=== PATIENT | female | born 1990 | race Caucasian/White ===

== ENCOUNTER 2016-10-18 13:22 | Emergency (ER) | payer MEDICAID ==
[~2016-10-18] VITALS: Ht 165.1 cm; Wt 104.0 kg
[2016-10-18 13:39] VITALS: BP 159/94
[2016-10-18] MEDS ORDERED: KETOROLAC 60MG/2ML VIAL IM ONE (14:30)
== END 2016-10-18 18:40 | disposition home or self-care (01) ==
LOC: ER 18:28
DX: M54.5 Low back pain (principal); G89.29 Other chronic pain; E66.9 Obesity, unspecified; K80.20 Calculus of gallbladder without cholecystitis without obstruction
CPT/HCPCS: 81025; 96372; 99283; J1885; Z7610

== ENCOUNTER 2017-01-11 15:16 | Emergency (ER) | payer MEDICAID ==
[~2017-01-11] VITALS: Ht 167.6 cm; Wt 106.0 kg
[2017-01-11] MEDS ORDERED: SODIUM CHLORIDE 0.9% 1,000 ML IV ONE (17:30)
[2017-01-11 17:59] LABS: CLARITY URINE CLOUDY (CLEAR); COLOR URINE YELLOW (YELLOW); GLUCOSE URINE NEGATIVE (NEGATIVE); KETONES URINE NEGATIVE (NEGATIVE); LEUKOCYTE ESTERASE URINE TRACE (NEGATIVE); NITRITE URINE NEGATIVE (NEGATIVE); OCCULT BLOOD URINE 3+ (NEGATIVE); PROTEIN URINE TRACE (NEGATIVE); SPECIFIC GRAVITY URINE 1.024 (1.005-1.030)
[2017-01-11 18:01] LABS: BASOPHILS % 1.2 % (0.0-2.0); EOSINOPHILS % 1.8 % (0.0-5.0); HEMATOCRIT. 38.2 % (36.0-48.0); HEMOGLOBIN. 12.6 g/dL (12.0-16.0); LYMPHOCYTES % 30.8 % (20.0-50.0); MEAN CORPUSCULAR HEMOGLOBIN 24.2 pg (28.0-32.0); MEAN CORPUSCULAR VOLUME 73.7 fL (81.0-99.0); MEAN PLATELET VOLUME 7.7 fl (7.4-10.4); NEUTROPHILS % 60.2 % (40.0-76.0); PLATELET 387 x1000/uL (130-400); RED BLOOD CELL COUNT 5.19 mill/uL (4.2-5.4); RED CELL DISTRIBUTION WIDTH 15.9 % (11.6-14.6)
[2017-01-11 18:03] LABS: CHLORIDE 101 mEq/L (98-107)
[2017-01-11 18:07] LABS: HCG SCREEN NEGATIVE
[2017-01-11 18:09] LABS: CARBON DIOXIDE 30 mEq/L (21-32)
[2017-01-11 18:15] LABS: *AMPHETAMINES SCREEN URINE NEGATIVE (NEGATIVE); *BARBITURATES SCREEN URINE NEGATIVE (NEGATIVE); *BENZODIAZEPINES SCREEN URINE NEGATIVE (NEGATIVE); *COCAINE SCREEN URINE NEGATIVE (NEGATIVE); CANNABINOID URINE SCREEN NEGATIVE (NEGATIVE); METHADONE URINE SCREEN NEGATIVE (NEGATIVE); OPIATES URINE SCREEN NEGATIVE (NEGATIVE); PHENCYCLIDINE URINE SCREEN NEGATIVE (NEGATIVE)
[2017-01-11] MEDS ORDERED: AZITHROMYCIN 500 MG in DEXT 5% WATER 250 ML IV ONE (19:00)
[2017-01-11] MEDS ORDERED: CEFTRIAXONE 1 G PREMIX 50 ML IV ONE (19:00)
[2017-01-11] MEDS ORDERED: KETOROLAC 30MG/ML VIAL IV STA (21:03)
[2017-01-11 21:43] VITALS: BP 138/84
== END 2017-01-11 21:44 | disposition home or self-care (01) ==
LOC: ER 18:00
DX: N92.0 Excessive and frequent menstruation with regular cycle (principal); N39.0 Urinary tract infection, site not specified; R31.0 Gross hematuria; R03.0 Elevated blood-pressure reading, without diagnosis of hypertension; Z90.721 Acquired absence of ovaries, unilateral; Z98.890 Other specified postprocedural states
CPT/HCPCS: 36415; 76830; 76856; 80048; 80305; 81001; 84703; 85025; 86850; 86900; 86901; 87086; 96361; 96365; 96366; 96367; 96375; 99285; J0456; J0696; J1885; J7030; Z7610; J7060

== ENCOUNTER 2024-03-12 21:37 | Emergency (ER) | payer SELFPAY ==
[~2024-03-12] VITALS: Ht 165.1 cm; Wt 84.0 kg
[2024-03-12 21:46] VITALS: BP 145/99; RESP 20; TEMP 98.8; O2SAT 100
[2024-03-12 21:53] VITALS: PULSE 81; O2SAT 98
[2024-03-13 00:40] LABS: CLARITY URINE CLEAR (CLEAR); COLOR URINE YELLOW (YELLOW); GLUCOSE URINE NEGATIVE (NEGATIVE); KETONES URINE NEGATIVE (NEGATIVE); LEUKOCYTE ESTERASE URINE NEGATIVE (NEGATIVE); NITRITE URINE NEGATIVE (NEGATIVE); OCCULT BLOOD URINE NEGATIVE (NEGATIVE); PROTEIN URINE NEGATIVE (NEGATIVE); SPECIFIC GRAVITY URINE 1.021 (1.005-1.030); UROBILINOGEN URINE 0.2 E.U./dL (0.2-1.0)
[2024-03-13] MEDS ORDERED: POLY250017 MT (00:47)
[2024-03-13] MEDS ORDERED: DOCU-150 MT (00:47)
== END 2024-03-13 03:10 | disposition home or self-care (01) ==
LOC: ER 21:37
DX: K59.00 Constipation, unspecified (principal)
CPT/HCPCS: 81003; 81025; 99283

== ENCOUNTER 2024-10-16 12:32 | Emergency (ER) | payer SELFPAY ==
[~2024-10-16] VITALS: Ht 167.6 cm; Wt 85.0 kg
[~2024-10-16 12:32] MED LIST: DOCU-422 MT; POLY250017 MT
[2024-10-16 12:38] VITALS: O2SAT 99
[2024-10-16 12:47] VITALS: BP 153/89; PULSE 68; RESP 16; TEMP 36.9; O2SAT 100
[2024-10-16] MEDS: ACETAMINOPHEN 325MG TABLET PO STA (13:40)
[2024-10-16] MEDS: ONDANSETRON 4MG ODT PO STA (13:40)
[2024-10-16 13:42] LABS: CLARITY URINE CLOUDY (CLEAR); COLOR URINE YELLOW (YELLOW); GLUCOSE URINE NEGATIVE (NEGATIVE); KETONES URINE 2+ (NEGATIVE); LEUKOCYTE ESTERASE URINE NEGATIVE (NEGATIVE); NITRITE URINE NEGATIVE (NEGATIVE); OCCULT BLOOD URINE 1+ (NEGATIVE); PROTEIN URINE TRACE (NEGATIVE); SPECIFIC GRAVITY URINE 1.026 (1.005-1.030)
[2024-10-16 14:02] LABS: BACTERIA URINE 1+; RBC URINE 0-2 /hpf (0-2); SQUAMOUS EPITHELIAL CELL URINE 1+ /lpf (RARE/1+); WBC URINE 0-2 /hpf (0-2); YEAST URINE NONE SEEN
[2024-10-16 14:28] LABS: BASOPHILS % 0.6 % (0.0-2.0); DIFFERENTIAL COMMENT 0; EOSINOPHILS % 0.3 % (0.0-5.0); HEMATOCRIT. 38.8 % (36.0-48.0); HEMOGLOBIN. 12.6 g/dL (12.0-16.0); LYMPHOCYTES % 20.6 % (20.0-50.0); MEAN CORPUSCULAR HEMOGLOBIN 25.5 pg (28.0-32.0); MEAN CORPUSCULAR HGB CONC 32.5 g/dL (31.0-37.0); MEAN CORPUSCULAR VOLUME 78.6 fL (81.0-99.0); MEAN PLATELET VOLUME 8.1 fl (7.4-10.4); MONOCYTES % 5.2 % (2.0-8.0); NEUTROPHILS % 73.3 % (40.0-76.0); PLATELET 292 x1000/uL (130-400); RED BLOOD CELL COUNT 4.94 mill/uL (4.2-5.4); RED CELL DISTRIBUTION WIDTH 16.2 % (11.6-14.6); WHITE BLOOD COUNT 12.4 x1000/uL (4.5-11.0)
[2024-10-16 14:31] LABS: HCG SCREEN POSITIVE
[2024-10-16 15:00] LABS: CARBON DIOXIDE 25 mEq/L (21-32); CHLORIDE 104 mEq/L (98-107); POTASSIUM 4.3 mEq/L (3.5-5.1); SODIUM 136 mEq/L (136-145)
[2024-10-16 15:01] LABS: CALCIUM 9.3 mg/dL (8.7-10.4)
[2024-10-16 15:05] LABS: CREATININE 0.6 mg/dL (0.6-1.0)
[2024-10-16 15:06] LABS: GLUCOSE 91 mg/dL (70-105); UREA NITROGEN BLOOD 7 mg/dL (9-23)
[2024-10-16 15:07] LABS: ALANINE AMINOTRANSFERASE 24 IU/L (10-49); ALBUMIN 4.4 g/dL (3.2-4.8); ASPARTATE AMINOTRANSFERASE 18 IU/L (<34)
[2024-10-16 15:08] LABS: BILIRUBIN DIRECT 0.1 mg/dL (<=3.0); BILIRUBIN TOTAL 0.5 mg/dL (0.1-1.0); PROTEIN TOTAL 7.7 g/dL (6.0-8.3)
[2024-10-16] MEDS ORDERED: CEPH500C2 MT (16:59)
[2024-10-16] MEDS ORDERED: PREN-135 MT (16:59)
== END 2024-10-16 17:07 | disposition home or self-care (01) ==
LOC: ER 12:32
DX: O23.41 Unspecified infection of urinary tract in pregnancy, first trimester (principal); Z3A.01 Less than 8 weeks gestation of pregnancy; Z90.721 Acquired absence of ovaries, unilateral
CPT/HCPCS: 99284; 76801; 80076; 80048; 81003; 81025; 84703; 84702; 83690; 85025; 36415; 76817; Q0162

== ENCOUNTER 2024-10-26 18:47 | Emergency (ER) | payer SELFPAY ==
[~2024-10-26] VITALS: Ht 165.1 cm; Wt 82.0 kg
[~2024-10-26 18:47] MED LIST changes: +CEPH500C2 MT; +PREN-135 MT
[2024-10-26 20:08] VITALS: TEMP 37; O2SAT 99
[2024-10-26 20:11] LABS: BASOPHILS % 0.6 % (0.0-2.0); DIFFERENTIAL COMMENT 0; EOSINOPHILS % 0.5 % (0.0-5.0); HEMATOCRIT. 41.3 % (36.0-48.0); HEMOGLOBIN. 13.4 g/dL (12.0-16.0); LYMPHOCYTES % 17.9 % (20.0-50.0); MEAN CORPUSCULAR HEMOGLOBIN 25.4 pg (28.0-32.0); MEAN CORPUSCULAR HGB CONC 32.5 g/dL (31.0-37.0); MEAN CORPUSCULAR VOLUME 78.2 fL (81.0-99.0); MONOCYTES % 6.8 % (2.0-8.0); NEUTROPHILS % 74.2 % (40.0-76.0); PLATELET 319 x1000/uL (130-400); RED BLOOD CELL COUNT 5.29 mill/uL (4.2-5.4); RED CELL DISTRIBUTION WIDTH 15.9 % (11.6-14.6)
[2024-10-26 20:26] LABS: CHLORIDE 103 mEq/L (98-107); POTASSIUM 4.2 mEq/L (3.5-5.1); SODIUM 136 mEq/L (136-145)
[2024-10-26 20:27] LABS: CARBON DIOXIDE 28 mEq/L (21-32)
[2024-10-26 20:28] LABS: CALCIUM 9.7 mg/dL (8.7-10.4)
[2024-10-26 20:32] LABS: CREATININE 0.6 mg/dL (0.6-1.0); GLUCOSE 103 mg/dL (70-105)
[2024-10-26 20:33] LABS: UREA NITROGEN BLOOD 7 mg/dL (9-23)
[2024-10-26 20:44] LABS: B-HCG QUANTITATIVE 117134 mIU/mL (<6)
[2024-10-26 22:10] LABS: CLARITY URINE CLEAR (CLEAR); COLOR URINE YELLOW (YELLOW); GLUCOSE URINE NEGATIVE (NEGATIVE); KETONES URINE 3+ (NEGATIVE); LEUKOCYTE ESTERASE URINE NEGATIVE (NEGATIVE); NITRITE URINE NEGATIVE (NEGATIVE); OCCULT BLOOD URINE NEGATIVE (NEGATIVE); PH URINE 6.5 (4.5-8.0); PROTEIN URINE NEGATIVE (NEGATIVE); SPECIFIC GRAVITY URINE 1.013 (1.005-1.030); UROBILINOGEN URINE 0.2 E.U./dL (0.2-1.0)
[2024-10-27] MEDS: ONDANSETRON 4MG ODT PO ONE (00:45)
[2024-10-27] MEDS: POLYETHYLENE GLYCOL 3350 (17GM) 1 DOSE PACK PO ONE (00:46)
[2024-10-27] MEDS ORDERED: ONDA-239 PO (01:34)
[2024-10-27] MEDS ORDERED: PSYL575P22 MT (01:35)
[2024-10-27] MEDS ORDERED: POLY17PO3 MT (01:35)
[2024-10-27 02:07] VITALS: BP 137/94; PULSE 76; RESP 18; O2SAT 97
== END 2024-10-27 02:08 | disposition home or self-care (01) ==
LOC: ER 18:47
DX: O26.891 Other specified pregnancy related conditions, first trimester (principal); Z3A.08 8 weeks gestation of pregnancy; O99.611 Diseases of the digestive system complicating pregnancy, first trimester; K59.00 Constipation, unspecified
CPT/HCPCS: 80048; 81003; 84702; 83690; 85025; 36415; 76801; 76817; 99284; Q0162; Z7610

== ENCOUNTER 2024-11-04 21:09 | Emergency (ER) | payer SELFPAY ==
[~2024-11-04] VITALS: Ht 165.1 cm; Wt 83.7 kg
[~2024-11-04 21:09] MED LIST changes: +ONDA-239 PO; +POLY17PO3 MT; +PSYL575P22 MT
[2024-11-04 21:10] VITALS: TEMP 36.8; O2SAT 99
[2024-11-04 21:11] VITALS: BP 156/92; PULSE 86; RESP 20; O2SAT 100
[2024-11-04 21:57] LABS: BASOPHILS % 0.2 % (0.0-2.0); DIFFERENTIAL COMMENT 0; EOSINOPHILS % 0.7 % (0.0-5.0); HEMATOCRIT. 38.6 % (36.0-48.0); HEMOGLOBIN. 12.5 g/dL (12.0-16.0); LYMPHOCYTES % 16.5 % (20.0-50.0); MEAN CORPUSCULAR HEMOGLOBIN 25.5 pg (28.0-32.0); MEAN CORPUSCULAR HGB CONC 32.4 g/dL (31.0-37.0); MEAN CORPUSCULAR VOLUME 78.8 fL (81.0-99.0); MEAN PLATELET VOLUME 7.6 fl (7.4-10.4); NEUTROPHILS % 77.6 % (40.0-76.0); PLATELET 337 x1000/uL (130-400); RED CELL DISTRIBUTION WIDTH 15.8 % (11.6-14.6); WHITE BLOOD COUNT 15.5 x1000/uL (4.5-11.0)
[2024-11-04] MEDS ORDERED: DOXY1TAB3 MT (21:57)
[2024-11-04] MEDS ORDERED: MAGN296S70 MT (21:57)
[2024-11-04 22:05] LABS: CHLORIDE 103 mEq/L (98-107); POTASSIUM 3.8 mEq/L (3.5-5.1); SODIUM 137 mEq/L (136-145)
[2024-11-04 22:06] LABS: CARBON DIOXIDE 25 mEq/L (21-32)
[2024-11-04 22:07] LABS: CALCIUM 9.8 mg/dL (8.7-10.4)
[2024-11-04] MEDS: ONDANSETRON 4MG ODT PO ONE (22:07)
[2024-11-04] MEDS: ACETAMINOPHEN 325MG TABLET PO ONE (22:07)
[2024-11-04 22:11] LABS: CREATININE 0.5 mg/dL (0.6-1.0); GLUCOSE 94 mg/dL (70-105)
[2024-11-04 22:12] LABS: UREA NITROGEN BLOOD < 5 mg/dL (9-23)
[2024-11-04 22:13] LABS: ALANINE AMINOTRANSFERASE 43 IU/L (10-49); ALBUMIN 4.7 g/dL (3.2-4.8); ASPARTATE AMINOTRANSFERASE 22 IU/L (<34)
[2024-11-04 22:14] LABS: BILIRUBIN DIRECT < 0.1 mg/dL (<=3.0); BILIRUBIN TOTAL 0.3 mg/dL (0.1-1.0); PROTEIN TOTAL 7.7 g/dL (6.0-8.3)
== END 2024-11-04 22:08 | disposition home or self-care (01) ==
LOC: ER 21:09
DX: O99.611 Diseases of the digestive system complicating pregnancy, first trimester (principal); Z3A.09 9 weeks gestation of pregnancy; Z79.899 Other long term (current) drug therapy
CPT/HCPCS: 99283; 80076; 80048; 83690; 85025; 36415; Q0162

== ENCOUNTER 2025-03-15 10:05 | Emergency (ER) | payer MEDICAID, OTHER ==
[~2025-03-15] VITALS: Ht 172.7 cm; Wt 86.0 kg
[~2025-03-15 10:05] MED LIST changes: +DOXY1TAB3 MT; +MAGN296S70 MT
[2025-03-15 10:09] VITALS: O2SAT 99
[2025-03-15 11:00] LABS: BASOPHILS % 0.3 % (0.0-2.0); EOSINOPHILS % 0.7 % (0.0-5.0); HEMATOCRIT. 28.7 % (36.0-48.0); HEMOGLOBIN. 9.8 g/dL (12.0-16.0); LYMPHOCYTES % 13.6 % (20.0-50.0); MEAN PLATELET VOLUME 8.0 fl (7.4-10.4); MONOCYTES % 6.2 % (2.0-8.0); NEUTROPHILS % 79.2 % (40.0-76.0); PLATELET 242 x1000/uL (130-400); RED BLOOD CELL COUNT 3.75 mill/uL (4.2-5.4); RED CELL DISTRIBUTION WIDTH 14.6 % (11.6-14.6)
[2025-03-15 11:20] LABS: CREATININE 0.4 mg/dL (0.6-1.0)
[2025-03-15 11:21] LABS: UREA NITROGEN BLOOD < 5 mg/dL (9-23)
[2025-03-15 11:22] LABS: ASPARTATE AMINOTRANSFERASE 11 IU/L (<34)
[2025-03-15 11:23] LABS: BILIRUBIN DIRECT < 0.1 mg/dL (<=3.0); BILIRUBIN TOTAL 0.2 mg/dL (0.1-1.0); PROTEIN TOTAL 6.1 g/dL (6.0-8.3)
[2025-03-15 11:26] LABS: INR 0.9
[2025-03-15 11:28] LABS: HCG SCREEN POSITIVE
[2025-03-15 12:19] LABS: CLARITY URINE CLEAR (CLEAR); COLOR URINE YELLOW (YELLOW); GLUCOSE URINE NEGATIVE (NEGATIVE); KETONES URINE NEGATIVE (NEGATIVE); LEUKOCYTE ESTERASE URINE NEGATIVE (NEGATIVE); NITRITE URINE NEGATIVE (NEGATIVE); OCCULT BLOOD URINE NEGATIVE (NEGATIVE); PH URINE 7.0 (4.5-8.0); PROTEIN URINE NEGATIVE (NEGATIVE); SPECIFIC GRAVITY URINE 1.012 (1.005-1.030); UROBILINOGEN URINE 0.2 E.U./dL (0.2-1.0)
[2025-03-15 12:36] LABS: *AMPHETAMINES SCREEN URINE NEGATIVE (NEGATIVE); *BARBITURATES SCREEN URINE NEGATIVE (NEGATIVE); *BENZODIAZEPINES SCREEN URINE NEGATIVE (NEGATIVE); *COCAINE SCREEN URINE NEGATIVE (NEGATIVE); CANNABINOID URINE SCREEN NEGATIVE (NEGATIVE); METHADONE URINE SCREEN NEGATIVE (NEGATIVE); OPIATES URINE SCREEN NEGATIVE (NEGATIVE); PHENCYCLIDINE URINE SCREEN NEGATIVE (NEGATIVE)
[2025-03-15 12:37] LABS: ECSTASY MDMA SCREEN URINE NEGATIVE (NEGATIVE)
[2025-03-15 12:38] VITALS: BP 141/92; PULSE 99; RESP 19; TEMP 37.2; O2SAT 99
== END 2025-03-15 12:55 | disposition short-term general hospital (02) ==
LOC: ER 10:05
DX: O26.893 Other specified pregnancy related conditions, third trimester (principal); K21.9 Gastro-esophageal reflux disease without esophagitis; R10.2 Pelvic and perineal pain; Z3A.28 28 weeks gestation of pregnancy; Z79.899 Other long term (current) drug therapy; Z98.890 Other specified postprocedural states
CPT/HCPCS: 36415; 76815; 80048; 80076; 80305; 80320; 81003; 83735; 84702; 84703; 85025; 86592; 86850; 86900; 93005; 99291; G0480